=== PATIENT | male | born 1965 | race Caucasian/White ===

== ENCOUNTER → 2024-09-19 | Outpatient (CLI) | payer BC, SELFPAY ==
--- NOTE | 2024-09-19 15:12 | XR_ITS ---
Examination: PA lateral chest 2 views TECHNIQUE: Upright PA lateral chest 2 views Exam date and time: September 19, 2024 1522 hours Comparison August 28, 2024 INDICATIONS: Coughing chest pain 5 days. FINDINGS: Focal parenchymal disease in the lingular segment masslike, measuring at least 4 cm Right lung clear Normal heart size IMPRESSION: Recommend CT chest without contrast follow-up to exclude 4 cm pulmonary mass in the lingular segment left upper lobe
== END | disposition home or self-care (01) ==
PROVIDERS: PCP Family Medicine; Referring Provider Registered Nurse; Visit Provider Registered Nurse
DX: J18.9 Pneumonia, unspecified organism (principal)
CPT/HCPCS: 71046

== ENCOUNTER → 2024-11-14 | Outpatient (CLI) | payer BC, SELFPAY ==
--- NOTE | 2024-11-14 09:00 | XR_ITS ---
Examination: CT chest, without intravenous contrast. Sagittal and coronal 2-D reconstructions. Exam date and time: November 14, 2024 0905 hours INDICATIONS: Coughing congestion beginning July 2024, focal parenchymal disease in the lingular segment on chest x-ray September 19, 2024 CTDI:vol (mGy) 9.58 DLP: (mGycm) 419 Technique: Multiple 3.0 mm axial sections of the chest to been obtained. Bone and lung density settings are obtained. Sagittal and coronal 2-D reconstructions have been obtained. Low dose protocols were performed. One or more of the following dose reduction techniques were used; automated exposure control, adjustment of the mA and/or KV according to patient size, use of iterative reconstruction technique. Findings: Subcentimeter pretracheal lymph nodes No thoracic aortic aneurysmal dilatation Pulmonary artery segments are not enlarged 5 cm mass in the left upper lobe with surrounding pneumonic consolidation No pleural disease No focal visualized liver or splenic lesion no gallstones Normal pancreas IMPRESSION: 5 cm pulmonary mass in the left upper lobe, highest on the differential list is lung cancer This mass is amenable to CT-guided percutaneous biopsy for diagnosis
== END | disposition home or self-care (01) ==
PROVIDERS: PCP Physician Assistant; Referring Provider Physician Assistant; Visit Provider Physician Assistant
DX: R91.8 Other nonspecific abnormal finding of lung field (principal)
CPT/HCPCS: 71271

== ENCOUNTER 2024-12-10 08:41 | Outpatient (CLI) | payer BC, SELFPAY ==
[2024-12-06 11:29] LABS: Basophils # (Auto) 0.1 Thou/mm3 (0.0-0.2); Basophils % (Auto) 1 % (0-2.5); Eosinophils # (Auto) 0.3 Thou/mm3 (0.0-0.5); Eosinophils % (Auto) 3 % (0-10); Hematocrit 37.2 % (41.0-53.0); Hemoglobin 12.3 g/dL (13.5-16.0); Immature Granulocytes % (Auto) 0 % (0-0); Immature Granulocytes Auto 0.04 Thou/mm3 (0.00-0.00); Lymphocytes # (Auto) 1.9 Thou/mm3 (1.0-4.8); Lymphocytes % (Auto) 16 % (10-50); Mean Corpuscular HGB Conc 33.1 g/dl (31.0-37.0); Mean Corpuscular Hemoglobin 29.4 pg (25.0-35.0); Mean Corpuscular Volume 89 fL (80-100); Monocytes # (Auto) 1.3 Thou/mm3 (0.0-0.8); Monocytes % (Auto) 11 % (0-12); Neutrophils # (Auto) 8.5 Thou/mm3 (1.8-7.7); Neutrophils % (Auto) 70 % (37-80); Nucleated Red Blood Cell % 0 /100 WBC (0); Platelet Count 338 Thou/mm3 (140-440); RDW Standard Deviation 45.7 fL (35.1-43.9); Red Blood Count 4.18 Miln/mm3 (4.50-5.90)
[2024-12-06 11:40] LABS: Creatinine (Component) 0.9 mg/dL (0.6-1.3); eGFR > 60 See Note
[2024-12-06 12:26] LABS: INR 0.9 (0.9-1.3); Prothrombin Time 10.3 Seconds (9.0-12.2)
[2024-12-06 15:28] VITALS: BMI 24.7
[2024-12-10] VITALS (14 sets, daily range): BP systolic 102–137; BP diastolic 72–90; PULSE 85–102; RESP 12–21; TEMP 36.3–37.1; O2SAT 94–100
--- NOTE | 2024-12-10 | XR_ITS ---
Examination: AP chest single view TECHNIQUE: Portable AP chest single view Date and time: 03/12/2025 1026 hours INDICATIONS: Post lung biopsy FINDINGS: No pneumothorax post lung biopsy Large pulmonary mass left lung Normal heart size IMPRESSION: No pneumothorax post lung biopsy
[2024-12-10] MEDS: SODIUM CHLORIDE 0.9% 500 ML 500 ML 20 ML IV (09:28)
--- NOTE | 2024-12-10 09:30 | XR_ITS ---
Examination: CT-guided percutaneous biopsy pulmonary mass left upper lobe CT chest without intravenous contrast INDICATIONS: 5 cm pulmonary mass left upper lobe on CT chest November 14, 2024 Date and time of procedure: December 10, 2024 0928 hours Informed consent provided. A timeout was completed verifying correct patient, procedure, site and positioning. Technique: Axial 3 mm sections were obtained for localization of the pulmonary mass left upper lobe. Appropriate area is marked. The patient's site was prepped and draped in sterile fashion Maximal sterile barrier technique utilized, including hand hygiene Local anesthesia was obtained with 1% lidocaine. Low dose protocols were performed. One or more of the following dose reduction techniques were used; automated exposure control, adjustment of the mA and/or KV according to patient size, use of iterative reconstruction technique. Utilizing CT fluoroscopic guidance for core biopsies obtained of the pulmonary mass left upper lobe utilizing an 18-gauge core needle Patient appears in stable condition during this procedure. At completion of the procedure, the patient is in satisfactory condition. Estimated blood loss 0 cc Complete pathology report to follow. Impression: Successful CT-guided percutaneous biopsy pulmonary mass left upper lobe
[2024-12-10] MEDS: fentaNYL CIT INJ 50 mCg/ML AMP 2ML 100 MCG IVP (09:53)
--- NOTE | 2024-12-10 11:05 | XR_ITS ---
Examination: AP chest single view TECHNIQUE: AP upright portable chest single view Exam date and time: December 10, 2024 1135 hours INDICATIONS: Post left lung biopsy today FINDINGS: Pulmonary a mass left lung No pneumothorax post lung biopsy IMPRESSION: No pneumothorax post lung biopsy
--- NOTE | 2024-12-10 18:02 | PC.NURSE ---
1103 patient is awake, alert, breathing unlabored, s/p left lung biopsy, dressing to left upper lateral chest dry with no bleeding. Report received from Mynor GARCIA, patient had first xray ready by with no pneumothorax, second xray due at 1105. 1105 radiology staff called to inform chest xray is due 1131 chest xray completed 1219 patient is awake, alert, breathing unlabored, dressing dry with no bleeding, second xray says no pneumothorax, discharge instructions given to patient and , patient discharged home in wheelchair with all belongings.
== END 2024-12-10 12:19 | disposition home or self-care (01) ==
PROVIDERS: Radiology Diagnostic Radiology; PCP Physician Assistant; Referring Provider Physician Assistant; Visit Provider Physician Assistant
DX: J18.9 Pneumonia, unspecified organism (principal); Z01.812 Encounter for preprocedural laboratory examination
CPT/HCPCS: 32408; 36415; 77012; 80053; 82565; 85025; 85610; 85730; J3010; J7040

== ENCOUNTER → 2025-02-05 | Outpatient (CLI) | payer BC, SELFPAY ==
--- NOTE | 2025-02-05 13:20 | XR_ITS ---
Indication: PA lateral chest 2 views TECHNIQUE: Upright PA lateral chest 2 views Date and time: February 05, 2025 1329 hours INDICATIONS: Pneumonia history July 2024 FINDINGS: Again noted parenchymal disease in the lingular segment compared to chest x-ray December 10, 2024, please see the CT abdomen report November 14, 2024 indicating 5 cm pulmonary mass in the left upper lobe Normal heart size Right lung clear IMPRESSION: Pulmonary mass left upper lobe shows no significant change taking into account change in technique compared to the November 10, 2024 exam, consider continued follow-up
== END | disposition home or self-care (01) ==
LOC: CDIM 13:14
PROVIDERS: PCP Family Medicine; Referring Provider Specialist; Visit Provider Specialist
DX: R91.8 Other nonspecific abnormal finding of lung field (principal)
CPT/HCPCS: 71046